=== PATIENT | male | born 1990 | race Caucasian/White ===

== ENCOUNTER 2017-05-01 11:28 | Emergency (ER) | payer MEDICAID ==
[~2017-05-01] VITALS: Ht 177.8 cm; Wt 111.1 kg
[2017-05-01 11:36] VITALS: BP_SYST 152
== END 2017-05-01 12:13 | disposition home or self-care (01) ==
LOC: SED 11:28 → EDBD 11:28 → SED 12:13
DX: J20.9 Acute bronchitis, unspecified (principal); H65.91 Unspecified nonsuppurative otitis media, right ear; R42 Dizziness and giddiness; R11.10 Vomiting, unspecified; R19.7 Diarrhea, unspecified
CPT/HCPCS: 99283

== ENCOUNTER 2019-06-12 02:10 | Emergency (ER) | payer MEDICAID ==
[~2019-06-12] VITALS: Ht 180.3 cm; Wt 113.4 kg
[2019-06-12 02:21] VITALS: BP_SYST 159
--- NOTE | 2019-06-12 02:27 | NUR ---
Pt placed to ER bed 03, report given to LINDSAY Dia.
--- NOTE | 2019-06-12 02:28 | NUR ---
ER at bedside examining patient.
--- NOTE | 2019-06-12 02:28 | NUR ---
Pt brought to ED by self. Awake, alert, oriented x4. Pt C/C of cough and congestion x3 weeks. Pt states that it has not resolved and has been getting worse. Pt states that he has pain on cough. Pt denies chest pain, nausea, vomiting, diarrhea, shortness of breath. Pt denies any other medical complaint at this time. Pt denies fever. Pt states he has been taking OTC medications without resolve. Pt restin [facility] ED bed, VSS.
[2019-06-12] MEDS ORDERED: IPRATROPIUM/ALBUTEROL SULFATE 3 ML AMPUL.NEB (DUONEB) INH ONE (02:45)
[2019-06-12] MEDS ORDERED: KETOROLAC TROMETHAMINE 30 MG VIAL IM ONE (02:45)
--- NOTE | 2019-06-12 02:45 | NUR ---
DIRECTOR OF PULMONARY UNIT Bedside performing breathing treatment
[2019-06-12 03:30] VITALS: BP_SYST 148
--- NOTE | 2019-06-12 03:30 | NUR ---
Patient given written and verbal discharge instructions and verbalizes understanding. ER MD discussed with patient the results and treatment provided. Patient in stable condition. ID arm band removed.No IV Rx of Prednisone, Albuterol, Guaiatussin given. Patient educated on pain management and to follow up with PMD. Pain Scale 0/10 on discharge. Opportunity for questions provided and answered. Medication side effect fact sheet provided.
== END 2019-06-12 03:30 | disposition home or self-care (01) ==
LOC: SED 02:10
DX: J20.9 Acute bronchitis, unspecified (principal); F17.290 Nicotine dependence, other tobacco product, uncomplicated; Z71.6 Tobacco abuse counseling
CPT/HCPCS: 71045; 94640; 96372; 99283; J1885; J7620

== ENCOUNTER 2020-03-27 23:43 | Emergency (ER) | payer MEDICAID ==
[~2020-03-27] VITALS: Ht 177.8 cm; Wt 107.5 kg
[2020-03-28 00:20] VITALS: BP_SYST 137
--- NOTE | 2020-03-28 01:04 | NUR ---
PT ambulatory to bed hallway for evaluation
[2020-03-28] MEDS ORDERED: ACETAMINOPHEN 500 MG TABLET PO ONE (01:15)
[2020-03-28] MEDS ORDERED: KETOROLAC TROMETHAMINE 30 MG VIAL IM ONE (01:15)
--- NOTE | 2020-03-28 01:15 | NUR ---
ER at bedside examining patient.
--- NOTE | 2020-03-28 01:18 | NUR ---
Pt presents to the ED for lower back pain x today. Pt states he possible hurt himself while running earlier today and had back spasm. Pt states he took ibuprofen for his pain w/ no relief. Denies trauma and fall.
[2020-03-28 02:29] VITALS: BP_SYST 137
--- NOTE | 2020-03-28 02:29 | NUR ---
Patient given written and verbal discharge instructions and verbalizes understanding. ER MD discussed with patient the results and treatment provided. Patient in stable condition. ID arm band removed. Rx of Temple and Naproxen given. Patient educated on pain management and to follow up with PMD. Opportunity for questions provided and answered. Medication side effect fact sheet provided.
== END 2020-03-28 02:29 | disposition home or self-care (01) ==
LOC: SED 23:43
DX: M54.5 Low back pain (principal)
CPT/HCPCS: 72110; 82962; 96372; 99283; J1885